=== PATIENT | male | born 1940 | race Asian ===

== ENCOUNTER 2016-10-20 18:47 | Inpatient (IN) | payer MEDICARE, OTHER ==
--- NOTE | ~2016-10-20 | DS ---
Unit #: [id number] #: [id number] Patient: YARELY WETZEL [id number] [address] [address] [id number] I MR#: [id number] NAME: YARELY WETZEL. ROOM: 333 Age: 75 Sex: M Admission Date: 10/20/2016 : 1940 Discharge Date: 10/23/2016 Attending Physician: Radha Cannon M.D. Referring Physician: Primary Care Physician No Primary Care Physician: Primary Care Physician No DISCHARGE SUMMARY DISCHARGE DIAGNOSES 1. Chronic protein malnutrition with anorexia, encouraged the patient to use Ensure. 2. Acute on chronic iron deficiency anemia, status post esophagogastroduodenoscopy and colonoscopy by Dr. Gonzales. 3. Benign prostatic hypertrophy, stable. 4. Chronic cough. 5. Colitis on CT of abdomen and pelvis without any evidence of ongoing infection at this time. 6. Osteoarthritis. CONSULTANTS Dr. Gonzales with Gastroenterology. PROCEDURES PERFORMED The patient had an EGD and colonoscopy per Dr. Gonzales on 10/22/2016 with findings of achalasia cardia, mild sigmoid and descending colon diverticulosis without any evidence of diverticulitis, polyps were visualized which were sessile and removed and cauterized, normal cecum and terminal ileum. DIAGNOSTIC STUDIES LABORATORY RESULTS: Currently, the patient labs of [facility] with glucose of 118, creatinine 0.6, sodium 137, potassium 3.9, chloride 110, CO2 of 20, uric acid when assessed was 4.2, calcium 8.3, magnesium 1.6, total protein of 6.1, albumin is 2.4. Total bilirubin 0.3, AST 31, ALT 36, alk phos 146. CBC with WBC of 6.5, RBC of 2.85, hemoglobin is 8.2, hematocrit is 24.5, MCV is 86.0, MCH is 28.9, MCHC is 33.6, RDW is 15.0, platelets 389, MPV was 6.9. HOSPITAL COURSE The patient is a 75-year-old male with past medical history of nonsustained SVT and BPH, who presented to the emergency department due to odynophagia and globus sensation as well as generalized weakness. On rectal exam, he was found to have heme-positive stool. He was admitted to [facility], where in the emergency department, CT of abdomen was done with findings of segmental thickening of the ascending colon raising the possibility of colitis, but no large or small bowel obstruction seen. There was some L1 compression fracture chronic in nature and a mildly enlarged prostate. The patient was admitted due to anorexia, odynophagia, and reported weight loss with Hemoccult positive stool. He was seen in consultation with Dr. Gonzales with Gastroenterology. We thought that was best to assess per the patient's current iron Unit #: [id number] #: [id number] Patient: YARELY WETZEL H deficiency anemia with EGD as well as colonoscopy. The patient was found to have achalasia cardia. He did get 25 units of Botox injection each of the 4 quadrants of the distal esophagus evidence of diverticulitis. The patient have remained afebrile during this hospitalization. WBC was not elevated. He had no abdominal pain when I assessed him during his entire hospitalization; therefore, I felt no need to utilize antibiotics per the CT with concern for the colitis. At this time, the patient tells me that he is eating, but very minimally. He does not like to eat fatty food. He does not like to eat red meat and actually he is afraid to eat red meat. I have talked to him about his chronic protein malnutrition and anorexia condition. I have encouraged the patient to use Ensure. He told me that he would try. The patient also complains of chronic cough that has been ongoing for years. He tells me that he has never smoked, but his children does. We will give him a trial of Symbicort to see if this will alleviate his symptoms. He will follow up with Dr. Gonzales in 10 to 12 weeks and as far as his BPH, he has seen Dr. White in the past. I have encouraged him to go back and see Dr. White if there is any additional dysuria symptoms that does not alleviate with the Flomax and finasteride. The patient tells me that he also have this chronic ongoing all over body pain which starts in the shoulder and goes into his arms and to his legs, to his back. I did check his uric acid level which was within normal limit. I believe the patient has osteoporosis that is causing his all over body pain. He would follow up with his primary care physician for this. DISCHARGE CONDITION Stable. DISCHARGE FOLLOWUP Follow up with primary care physician within 1 to 2 weeks. Follow up with Dr. Gonzales in 10 to 12 weeks. DISCHARGE MEDICATIONS Flomax 0.4 mg orally daily, Coreg 3.125 mg orally b.i.d., Symbicort 160 mcg 2 puffs inhaled b.i.d., finasteride 5 mg orally daily, iron sulfate 324 mg orally daily along with the stool softener one capsule orally daily as needed for constipation. Dictated by... Collin Tejada PA-C for Sorin Granado/hawa TD: 10/24/2016 07:52 JOB #: [id number] DISCHARGE SUMMARY X X DISCHARGE SUMMARY
--- NOTE | ~2016-10-20 | OR ---
Unit #: [id number] #: [id number] Patient: YARELY WETZEL [id number] [address] [place], [place] [address] [id number] I MR#: [id number] NAME: YARELY WETZEL. ROOM: [facility] Date of Procedure: 10/22/2016 Admission Date: 10/20/2016 Surgeon: Best Gonzales M.D. : 1940 Attending Physician: Radha Cannon M.D. OPERATIVE REPORT PREOPERATIVE DIAGNOSIS Iron-deficiency anemia. PROCEDURES PERFORMED Upper gastrointestinal endoscopy and Botox injection as well as colonoscopy with polypectomy. POSTOPERATIVE DIAGNOSES For upper endoscopy: 1. The patient had changes that were suggestive of achalasia cardia. 25 units of Botox was injected each of the 4 quadrants of the distal esophagus just above the gastroesophageal junction. Rest of the examination up to third part of duodenum was normal. For colonoscopy: 1. The patient had mild sigmoid and descending colon diverticulosis. These were few and far between. 2. Two sessile polyps, one each in the proximal and mid transverse colon. These were 1.4 cm and 8 mm each. Both were sessile and were removed using snare cautery polypectomy. They were retrieved and sent for histology. 3. Rest of examination up to cecum and terminal ileum was normal. The quality of prep was excellent. RECOMMENDATIONS 1. Regular diet. 2. Ferrous gluconate 250 mg IV q.24 hours for 3 consecutive days. 3. The patient will be followed up in the office in 10 to 12 weeks' time. SEDATION USED MAC. DESCRIPTION OF PROCEDURE Following detailed explanation of the potential risks and complications of an upper endoscopy and a colonoscopy, namely perforation, bleeding, and complications related to sedation, the patient was brought to GI lab and laid in the left lateral decubitus position. Lubricated tip of the Olympus video upper endoscope was passed through bite block into the proximal esophagus under direct vision. The entire esophageal mucosa was examined. The patient was noted to have liquid residue accumulated above the GE junction and distally, the GE junction was closed to tapered opening. There being no stricture or ring; however, the patient had changes suggestive of achalasia. The scope was then advanced into the gastric cavity and the latter was insufflated. Mucosa of the fundus, Unit #: [id number] #: [id number] Patient: YARELY WETZEL body, and antrum was examined and appeared unremarkable. Pylorus was intubated with visualization of the normal duodenal bulb and second and third part of the duodenum. Upon withdrawal and retroflexion, incisura, cardia, and greater curve examined and no additional findings noted. The scope was then withdrawn in the distal esophagus. Using sclerotherapy needle, each of the four quadrants of the esophagus was injected with 25 units of Botox each a 1 cm above the Z-line and distal esophagus. Excellent hemostasis was achieved. The entire esophageal mucosa was examined all the way up to pharynx. No additional findings noted. The examination table was then turned by 180 degrees and the patient positioned for a colonoscopy. A digital rectal examination was performed, which was normal. Lubricated tip of the Olympus video colonoscope was inserted through the anus and advanced under direct vision. The scope was advanced and passed up to sigmoid into descending colon. Scant small diverticula were noted in this area. The scope tip was then navigated all the way up to cecum with visualization of the ileocecal valve and the appendiceal orifice. Preparation was excellent with good visualization and photodocumentation was obtained. Last several inches of terminal ileum also visualized after intubation of the ileocecal valve and appeared normal. Successive segments of the colonic mucosa were examined upon withdrawal and appeared unremarkable except for presence of 2 sessile polyps, one each in the proximal and mid transverse colon. The proximal transverse colon polyp was about 1.4 cm in size and the mid transverse colon polyp was 8 mm in size. Both the polyps were sessile and were removed using snare cautery polypectomy. They were retrieved and sent for histology. Excellent hemostasis was achieved and Photodocumentation was obtained. No additional polyps noted. Other than the scant diverticula seen in the left side, the patient was also noted to have small internal hemorrhoids at anal verge. The scope was then withdrawn. The patient returned to recovery area. He tolerated the procedure without any postprocedure complications. Dictated bySorin Kidd TD: 10/23/2016 03:10 JOB #: [id number] OPERATIVE REPORT X Best Gonzales MD PROCEDURE OPERATIVE NOTE
--- NOTE | ~2016-10-20 | CT2 ---
[facility] A Service of [facility] RADIOLOGY TEXT RESULTS PATIENT: YARELY WETZEL LOCATION: [facility] 333-01 : 42 UNIT #: [id number] AGE: [address]: Radha Cannon MD SEX: M ORDER DR: [id number] [facility] [address] [place], [place] [address] [id number] I MR#: [id number] Acc #: [id number] NAME: YARELY WETZEL. : 1940 SEX: M STUDY DATE/TIME: 10/21/2016 2:04 UNIT: A U ROOM: [facility] STUDY DESCRIPTION: CT Abd and Pelv W Cont Attending Physician: Radha Cannon M.D. Referring Physician: Primary Care Physician No Ordering Physician: Beverly Terry M.D. Primary Care Physician: Primary Care Physician No MEDICAL IMAGING REPORT This report is preliminary unless electronic signature is present EXAM CT abdomen and pelvis with contrast 10/21/2016 HISTORY 75-year-old male with right-side abdominal pain, shortness of breath and weakness for 4 days prior to arrival (4 days prior to 10/20/2016). Right-side body weakness. COMPARISON PA and lateral chest radiograph 10/20/2016. CT abdomen and pelvis 06/26/2016, bilateral renal ultrasound 06/27/2016, whole-body bone scan 06/30/2016. TECHNIQUE This CT examination was performed with one or more of the following radiation dose reduction techniques: automatic exposure control, adjustment of mA and/or kV according to patient size, and iterative reconstruction. PROCEDURE 5 mm axial images from the lung bases through the lesser trochanters after IV and enteric contrast were administered. Sagittal and coronal reformatted images were obtained. FINDINGS ABDOMEN: Minimal dependent atelectasis is present in the lung bases without consolidation. There is mild generalized cardiac enlargement. The liver, gallbladder, spleen, adrenals are normal. Pancreas appears mildly atrophic. Left renal cysts are present, including a 3 cm cyst in the left mid kidney, unchanged. No free air, free fluid or abscess is identified. No pathologic adenopathy is seen. There is mild long-segment thickening of the ascending colon, which could represent changes of colitis. The appendix appears within normal limits. No abnormal small STS. [facility] A Service of [facility] RADIOLOGY TEXT RESULTS PATIENT: YARELY WETZEL LOCATION: [facility] 333-01 : 42 UNIT #: [id number] AGE: [address]: Radha Cannon MD SEX: M ORDER DR: bowel dilation is seen. Posterior fusion rods are seen from T11-L3, creating beam-hardening artifact which obscures many of the images. PELVIS: Prostate gland appears mildly enlarged and protrudes into the urinary bladder base. Rectum within normal limits. No pelvic adenopathy or free fluid is identified. Benign appearing cyst within the right iliac wing. No acute osseous abnormalities are identified. Chronic-appearing L1 compression deformity. IMPRESSION 1. Segmental thickening of the ascending colon raising the possibility of colitis in the appropriate clinical context. The appendix appears normal. 2. No evidence of high-grade large or small bowel obstruction. 3. Left renal cysts. 4. Thoracolumbar posterior spinal fusion changes with chronic L1 compression deformity. 5. Mild cardiomegaly. 6. Mild prostatic enlargement with nodular protrusion into the urinary bladder base. Dictated by... Tamie Vickers M.D. THIS IS AN ELECTRONICALLY VERIFIED REPORT Tamie Vickers M.D. at 10/22/2016 1:50 AM JEWELL/dwain TD: 10/21/2016 11:17 JOB #: [id number] MEDICAL IMAGING REPORT COPY
--- NOTE | ~2016-10-20 | CR63 ---
[facility] A Service of [facility] RADIOLOGY TEXT RESULTS PATIENT: YARELY WETZEL LOCATION: [facility] 333-01 : 42 UNIT #: [id number] AGE: [address]: Radha Cannon MD SEX: M ORDER DR: [id number] [facility] [address] [place], [place] [address] [id number] I MR#: [id number] Acc #: [id number] NAME: YARELY WETZEL. : 1940 SEX: M STUDY DATE/TIME: 10/20/2016 15:45 UNIT: CEDOF ROOM: [id number] STUDY DESCRIPTION: CR Chest 2 View Attending Physician: Beverly Terry M.D. Referring Physician: Primary Care Physician No Ordering Physician: Eliot Scott M.D. Primary Care Physician: Primary Care Physician No MEDICAL IMAGING REPORT This report is preliminary unless electronic signature is present EXAM PA and lateral chest, 2 views, 10/20/2016 COMPARISON 06/25/2016 HISTORY Short of air and right side pain for 4 days. FINDINGS There has been prior spinal fixation, but the lungs appear well expanded but clear. There is no consolidation or effusion or pneumothorax, or other acute appearing abnormality. There is no acute bony abnormality. Dictated by... Malcom Santiago M.D. THIS IS AN ELECTRONICALLY VERIFIED REPORT Malcom Santiago M.D. at 10/23/2016 3:48 PM TEV/psc TD: 10/21/2016 00:14 JOB #: [id number] MEDICAL IMAGING REPORT COPY
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
--- NOTE | ~2016-10-20 | EKG ---
PATIENT: YARELY WETZEL UNIT #: [id number] Ventricular Rate: 110 BPM Atrial Rate: 110 BPM P-R Interval: 148 ms QRS Duration: 124 ms Q-T Interval: 364 ms QTC Calculation(Bezet): 492 ms P [place]: 66 degrees Calculated R [place]: -57 degrees Calculated T [place]: 50 degrees Diagnosis Line: Sinus tachycardia Diagnosis Line: Left axis deviation Diagnosis Line: Right bundle branch block Diagnosis Line: Abnormal ECG Diagnosis Line: When compared with ECG of 12-SEP-2016 05:19, Diagnosis Line: QRS axis Shifted left Diagnosis Line: ST now depressed in Anterior leads Diagnosis Line: Confirmed by WILLAM ULLOA MD ([id number]) on Diagnosis Line: 10/21/2016 8:17:57 AM INTERPRETING MD: ARTEMIO CABAN
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
[2016-10-20 16:53] LABS: BASOPHIL# 0.1 X10e3 (0-0.3); BASOPHIL% 0.5 % (0-2.5); EOSINOPHIL% 0.2 % (0.0-7.0); HEMATOCRIT 29.8 % (38.0-50.0); LYMPHOCYTE# 0.9 X10e3 (1.0-3.5); LYMPHOCYTE% 8.4 % (17.0-45.0); MEAN CELL VOLUME 85.6 FL (83-96); MEAN CORPUSCULAR HEMOGLOBIN 28.6 PG (28-34); MEAN CORPUSCULAR HGB CONC 33.4 g/dL (30-36); MEAN PLATELET VOLUME 6.3 FL (6.5-11.5); MONOCYTE% 9.1 % (3.0-12.0); NEUTROPHIL# 8.8 X10e3 (1.5-7.1); NEUTROPHIL% 81.8 % (40-75); PLATELET COUNT 469 X10e3 (140-420); RED BLOOD COUNT 3.49 X10e (3.90-5.60); RED CELL DISTRIBUTION WIDTH 14.6 % (11.0-15.5); WHITE BLOOD COUNT 10.7 X10e3 (4.0-10.5)
[2016-10-20 16:54] LABS: DIFF IND NO
[2016-10-20 17:13] LABS: ALKALINE PHOSPHATASE 274 U/L (32-92); ALT (SGPT) 55 U/L (10-40); AST (SGOT) 55 U/L (10-42); BLOOD UREA NITROGEN 16 mg/dL (9-23); BUN/CREATININE RATIO 17.77; CARBON DIOXIDE 24 mmol/L (22-31); CHLORIDE 93 mmol/L (100-111); CREATININE SERUM 0.9 mg/dL (0.6-1.4); GLOM FILT RATE Estimated ABOVE60 mL/min (>60); GLUCOSE FASTING 130 mg/dL (70-110); POTASSIUM 3.8 mmol/L (3.5-5.1); PROTEIN TOTAL SERUM 8.1 g/dL (6.0-8.3); SODIUM 131 mmol/L (135-145)
[~2016-10-20 18:47] MED LIST: COREG3.125 MG PO; FINASTERIDE5 MG PO; FLOMAX0.4 M1 PO; NO MEDICATIONS; NORCO 10-325 TA1 TAB PO
[2016-10-20 19:43] LABS: POC - CKMB <1.0 ng/mL (0.0-7.9); POC - TROPONIN <0.05 ng/mL (<=0.05)
[2016-10-20 20:47] LABS: URINE SOURCE CLEAN CATCH
[2016-10-20 20:53] LABS: URINE APPEARANCE CLEAR; URINE BLOOD 3+ (NEG); URINE COLOR DK YELLOW; URINE GLUCOSE NEG (NEG); URINE KETONE 2+ (NEG); URINE LEUKOCYTE ESTERASE NEG (NEG); URINE NITRATE NEG (NEG); URINE PROTEIN 2+ (NEG); URINE SPECIFIC GRAVITY 1.021 (1.003-1.035)
[2016-10-20 20:56] LABS: URBCS1 AUWI 100-200 /[HPF] (0-2); URINE BACTERIA AUWI NEG (NEGATIVE); URINE SQUAMOUS EPITHELIAL CELL NONE SEEN /[HPF]; UWBCS1 AUWI 0-2 (0-5)
[2016-10-20 21:00] LABS: CULTURE INDICATED? NO; URINE BILIRUBIN NEG (NEG)
[2016-10-20 21:14] LABS: INFLUENZA A NEG (NEG); INFLUENZA B NEG (NEG)
[2016-10-21 05:31] LABS: BASOPHIL% 0.5 % (0-2.5); EOSINOPHIL# 0.1 X10e3 (0-0.7); EOSINOPHIL% 1.2 % (0.0-7.0); HEMOGLOBIN 9.1 gm/dL (13.0-16.0); LYMPHOCYTE# 1.3 X10e3 (1.0-3.5); LYMPHOCYTE% 14.8 % (17.0-45.0); MEAN CELL VOLUME 84.6 FL (83-96); MEAN CORPUSCULAR HEMOGLOBIN 28.6 PG (28-34); MEAN CORPUSCULAR HGB CONC 33.8 g/dL (30-36); MEAN PLATELET VOLUME 5.9 FL (6.5-11.5); MONOCYTE# 0.8 X10e3 (0-1.0); MONOCYTE% 9.4 % (3.0-12.0); NEUTROPHIL# 6.4 X10e3 (1.5-7.1); NEUTROPHIL% 74.1 % (40-75); PLATELET COUNT 438 X10e3 (140-420); RED BLOOD COUNT 3.19 X10e (3.90-5.60); RED CELL DISTRIBUTION WIDTH 14.6 % (11.0-15.5); WHITE BLOOD COUNT 8.6 X10e3 (4.0-10.5)
[2016-10-21 05:37] LABS: DIFF IND NO
[2016-10-21 06:12] LABS: ALBUMIN SERUM 2.5 g/dL (3.5-5.0); ALKALINE PHOSPHATASE 215 U/L (32-92); ALT (SGPT) 46 U/L (10-40); AST (SGOT) 41 U/L (10-42); BLOOD UREA NITROGEN 12 mg/dL (9-23); CALCIUM SERUM 8.4 mg/dL (8.4-10.2); CARBON DIOXIDE 21 mmol/L (22-31); CHLORIDE 97 mmol/L (100-111); CREATININE SERUM 0.6 mg/dL (0.6-1.4); GLOM FILT RATE Estimated ABOVE60 mL/min (>60); GLUCOSE FASTING 132 mg/dL (70-110); POTASSIUM 3.5 mmol/L (3.5-5.1); PROTEIN TOTAL SERUM 6.8 g/dL (6.0-8.3); SODIUM 131 mmol/L (135-145)
[2016-10-22 08:57] LABS: HEMATOCRIT 26.1 % (38.0-50.0); HEMOGLOBIN 8.8 gm/dL (13.0-16.0); MEAN CELL VOLUME 85.4 FL (83-96); MEAN CORPUSCULAR HEMOGLOBIN 28.7 PG (28-34); MEAN CORPUSCULAR HGB CONC 33.6 g/dL (30-36); MEAN PLATELET VOLUME 5.9 FL (6.5-11.5); RED BLOOD COUNT 3.06 X10e (3.90-5.60); RED CELL DISTRIBUTION WIDTH 14.7 % (11.0-15.5); WHITE BLOOD COUNT 7.3 X10e3 (4.0-10.5)
[2016-10-22 09:26] LABS: ALBUMIN SERUM 2.7 g/dL (3.5-5.0); ALKALINE PHOSPHATASE 179 U/L (32-92); ALT (SGPT) 42 U/L (10-40); AST (SGOT) 38 U/L (10-42); BILIRUBIN,TOTAL 0.4 mg/dL (0.2-2.0); BLOOD UREA NITROGEN 6 mg/dL (9-23); BUN/CREATININE RATIO 8.57; CALCIUM SERUM 8.3 mg/dL (8.4-10.2); CARBON DIOXIDE 22 mmol/L (22-31); CHLORIDE 107 mmol/L (100-111); CREATININE SERUM 0.7 mg/dL (0.6-1.4); GLOM FILT RATE Estimated ABOVE60 mL/min (>60); GLUCOSE FASTING 146 mg/dL (70-110); MAGNESIUM 1.7 mg/dL (1.6-3.0); POTASSIUM 3.6 mmol/L (3.5-5.1); PROTEIN TOTAL SERUM 7.1 g/dL (6.0-8.3); SODIUM 136 mmol/L (135-145)
[2016-10-23 06:09] LABS: HEMATOCRIT 24.5 % (38.0-50.0); HEMOGLOBIN 8.2 gm/dL (13.0-16.0); MEAN CORPUSCULAR HEMOGLOBIN 28.9 PG (28-34); MEAN CORPUSCULAR HGB CONC 33.6 g/dL (30-36); MEAN PLATELET VOLUME 6.2 FL (6.5-11.5); RED BLOOD COUNT 2.85 X10e (3.90-5.60); WHITE BLOOD COUNT 6.5 X10e3 (4.0-10.5)
[2016-10-23 06:52] LABS: ALBUMIN SERUM 2.4 g/dL (3.5-5.0); ALKALINE PHOSPHATASE 146 U/L (32-92); ALT (SGPT) 36 U/L (10-40); AST (SGOT) 31 U/L (10-42); BILIRUBIN,TOTAL 0.3 mg/dL (0.2-2.0); CALCIUM SERUM 8.3 mg/dL (8.4-10.2); CARBON DIOXIDE 20 mmol/L (22-31); CHLORIDE 110 mmol/L (100-111); CREATININE SERUM 0.6 mg/dL (0.6-1.4); GLOM FILT RATE Estimated ABOVE60 mL/min (>60); GLUCOSE FASTING 118 mg/dL (70-110); MAGNESIUM 1.6 mg/dL (1.6-3.0); POTASSIUM 3.9 mmol/L (3.5-5.1); PROTEIN TOTAL SERUM 6.1 g/dL (6.0-8.3); SODIUM 137 mmol/L (135-145)
[2016-10-23 07:00] LABS: BLOOD UREA NITROGEN <5 mg/dL (9-23); BUN/CREATININE RATIO 8.33
[2016-10-23] MEDS ORDERED: SYMBICORT INH (12:09)
[2016-10-23] MEDS ORDERED: FERROUS SU324 ( 65 ) PO (12:09)
[2016-10-23] MEDS ORDERED: STOOL SOFTNER PO (12:10)
[2017-03-24] MEDS ORDERED: OXYCODONE HCL10 MG PO (12:34)
== END 2016-10-23 12:34 | disposition home or self-care (01) | DRG 812 ==
LOC: CED 18:47 → CEDOF 22:45 → C3A PCU 10-21 09:15
PROVIDERS: Emergency Medicine; Family Medicine; Internal Medicine; Internal Medicine Gastroenterology
PROC: 0DBL8ZZ Excision of Transverse Colon, Via Natural or Artificial Opening Endoscopic (ICD-10-PCS; principal; 2016-10-22 12:11)
PROC: 3E0G8GC Introduction of Other Therapeutic Substance into Upper GI, Via Natural or Artificial Opening Endoscopic (ICD-10-PCS; 2016-10-22 12:11)
PROC: 0DJ08ZZ Inspection of Upper Intestinal Tract, Via Natural or Artificial Opening Endoscopic (ICD-10-PCS; 2016-10-22 12:11)
DX: D50.0 Iron deficiency anemia secondary to blood loss (chronic) (principal); E46 Unspecified protein-calorie malnutrition; K22.0 Achalasia of cardia; I47.1 Supraventricular tachycardia; R10.819 Abdominal tenderness, unspecified site; N40.0 Benign prostatic hyperplasia without lower urinary tract symptoms; M19.90 Unspecified osteoarthritis, unspecified site; Z87.442 Personal history of urinary calculi; R63.0 Anorexia; R53.83 Other fatigue; K57.30 Diverticulosis of large intestine without perforation or abscess without bleeding; D12.3 Benign neoplasm of transverse colon; K52.9 Noninfective gastroenteritis and colitis, unspecified; R05 Cough; M81.0 Age-related osteoporosis without current pathological fracture
CPT/HCPCS: 71020; 74177; 80053; 81003; 82553; 83735; 84484; 84550; 85025; 85027; 87086; 87804; 88305; 93005; 94640; 94760; 99285; C9113; J0585; J0696; J2916; Q9967

== ENCOUNTER → 2017-02-16 | Outpatient (CLI) | payer MEDICARE, OTHER ==
[~2017-02-16] MED LIST changes: +FERROUS SU324 ( 65 ) PO; +HYDROCODON-ACE1 EAC9 PO; +OXYCODONE HCL10 MG PO; +SENNA-TIME S T1 EACH PO; +STOOL SOFTNER PO; +SYMBICORT INH
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
== END | disposition home or self-care (01) ==
LOC: CMRI 02-09 10:00
DX: G89.21 Chronic pain due to trauma (principal); M51.26 Other intervertebral disc displacement, lumbar region; M25.78 Osteophyte, vertebrae; M99.83 Other biomechanical lesions of lumbar region
CPT/HCPCS: 72141

== ENCOUNTER → 2017-02-27 | Outpatient (CLI) | payer MEDICARE, OTHER ==
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
== END | disposition home or self-care (01) ==
LOC: CMRI 17:08
DX: M25.511 Pain in right shoulder (principal); S46.011A Strain of muscle(s) and tendon(s) of the rotator cuff of right shoulder, initial encounter; M19.011 Primary osteoarthritis, right shoulder; M65.811 Other synovitis and tenosynovitis, right shoulder; M77.9 Enthesopathy, unspecified; S43.421A Sprain of right rotator cuff capsule, initial encounter
CPT/HCPCS: 73221

== ENCOUNTER → 2017-03-24 | Outpatient (CLI) | payer MEDICARE, OTHER ==
--- NOTE | ~2017-03-24 | CR63 ---
[facility] A Service of [facility] RADIOLOGY TEXT RESULTS PATIENT: YARELY WETZEL LOCATION: [facility] : 42 UNIT #: [id number] AGE: [address]: Jovan Peñaloza MD SEX: M ORDER DR: [id number] [facility] [address]. [place], [place] [address] [id number] O MR#: [id number] Acc #: [id number] NAME: YARELY WETZEL : 1940 SEX: M STUDY DATE/TIME: 03/24/2017 13:09 UNIT: [facility] ROOM: STUDY DESCRIPTION: CR Chest 2 View Attending Physician: Jovan Peñaloza M.D. Referring Physician: Jovan Peñaloza M.D. Ordering Physician: Jovan Peñaloza M.D. Primary Care Physician: Ai Mcclain A.P.R.N. MEDICAL IMAGING REPORT This report is preliminary unless electronic signature is present EXAM PA and lateral chest DATE 03/24/2017 HISTORY 76-year-old male undergoing preoperative evaluation for right shoulder arthroplasty procedure. Shortness of breath with activity today. Additional history of anemia. COMPARISON PA and lateral chest radiograph 10/20/2016. FINDINGS No acute airspace disease. The descending thoracic aorta is tortuous, but this is unchanged from prior. Heart size is normal. Posterior lumbosacral spinal fusion rods in place. IMPRESSION 1. No acute chest findings. No significant change compared to 10/20/2016. Dictated by... Tamie Vickers M.D. THIS IS AN ELECTRONICALLY VERIFIED REPORT Tamie Vickers M.D. at 03/25/2017 8:43 AM [facility]/dominik TD: 03/24/2017 20:45 JOB #: [id number] [facility] A Service of [facility] RADIOLOGY TEXT RESULTS PATIENT: YARELY WETZEL LOCATION: [facility] : 42 UNIT #: [id number] AGE: [address]: Jovan Peñaloza MD SEX: M ORDER DR: MEDICAL IMAGING REPORT Page 1 of 1 COPY
--- NOTE | ~2017-03-24 | CR230 ---
[facility] A Service of [facility] RADIOLOGY TEXT RESULTS PATIENT: YARELY WETZEL LOCATION: [facility] : 42 UNIT #: [id number] AGE: [address]: Jovan Peñaloza MD SEX: M ORDER DR: [id number] [facility] [address]. [place], [place] [address] [id number] O MR#: [id number] Acc #: [id number] NAME: YARELY WETZEL : 1940 SEX: M STUDY DATE/TIME: 03/24/2017 13:12 UNIT: [facility] ROOM: STUDY DESCRIPTION: CR Shoulder Min 2 View Rt Attending Physician: Jovan Peñaloza M.D. Referring Physician: Jovan Peñaloza M.D. Ordering Physician: Jovan Peñaloza M.D. Primary Care Physician: Ai Mcclain A.P.R.N. MEDICAL IMAGING REPORT This report is preliminary unless electronic signature is present EXAM Right shoulder 03/24/2017 INDICATIONS 76-year-old male presenting for preop evaluation right shoulder surgery. Short of air with activity, right shoulder pain, limited range of motion, symptoms began today. Anemia. TECHNIQUE Two views of the right shoulder, no comparisons. FINDINGS There is a high-riding right shoulder with associated degenerative change of the AC joint and glenohumeral joint. This may reflect a constellation of findings related to rotator cuff tear. No acute fracture. The bones are osteoporotic. IMPRESSION 1. Osteoporosis with degenerative change and imaging findings suspicious for underlying rotator cuff tear. Dictated by... Francisco Walker M.D. THIS IS AN ELECTRONICALLY VERIFIED REPORT Francisco Walker M.D. at 03/26/2017 7:28 AM JANELL/dominik TD: 03/24/2017 21:26 JOB #: [id number] MEDICAL IMAGING REPORT [facility] A Service [facility] RADIOLOGY TEXT RESULTS PATIENT: YAR[facility]ZEL [id number] UNIT #: [id number] AGE: [address]: Jovan Peñaloza MD SEX: M ORDER DR: Page 1 of 1 COPY
[2017-03-24 12:02] LABS: HEMATOCRIT 29.7 % (38.0-50.0); HEMOGLOBIN 9.9 gm/dL (13.0-16.0); MEAN CELL VOLUME 84.8 FL (83-96); MEAN CORPUSCULAR HEMOGLOBIN 28.3 PG (28-34); MEAN CORPUSCULAR HGB CONC 33.3 g/dL (30-36); MEAN PLATELET VOLUME 6.4 FL (6.5-11.5); RED BLOOD COUNT 3.5 X10e (3.90-5.60); RED CELL DISTRIBUTION WIDTH 16.4 % (11.0-15.5); URINE APPEARANCE CLEAR; URINE BILIRUBIN NEG (NEG); URINE BLOOD 2+ (NEG); URINE COLOR YELLOW; URINE GLUCOSE NEG (NEG); URINE KETONE NEG (NEG); URINE LEUKOCYTE ESTERASE NEG (NEG); URINE NITRATE NEG (NEG); URINE PROTEIN NEG (NEG); URINE UROBILINOGEN 0.2 MG/DL (NEG); WHITE BLOOD COUNT 4.4 X10e3 (4.0-10.5)
[2017-03-24 12:06] LABS: URBCS1 AUWI 50-100 /[HPF] (0-2); URINE BACTERIA AUWI NEG (NEGATIVE); URINE SQUAMOUS EPITHELIAL CELL NONE SEEN /[HPF]; UWBCS1 AUWI 0-2 (0-5)
[2017-03-24 12:14] LABS: PROTHROMBIN TIME (PATIENT) 10.9 SECONDS (10.0-11.7)
[2017-03-24 12:18] LABS: CULTURE INDICATED? NO; URINE SOURCE CLEAN CATCH
[2017-03-24 12:27] LABS: CALCIUM SERUM 8.9 mg/dL (8.4-10.2); GLOM FILT RATE Estimated 73.8 mL/min (>60); POTASSIUM 5.3 mmol/L (3.5-5.1)
== END | disposition home or self-care (01) ==
LOC: CAMB 11:17
PROVIDERS: Orthopaedic Surgery
DX: Z01.818 Encounter for other preprocedural examination (principal); M19.011 Primary osteoarthritis, right shoulder; M81.0 Age-related osteoporosis without current pathological fracture
CPT/HCPCS: 36415; 71020; 73030; 80048; 81003; 85027; 85610; 86850; 86900; 86901; 87070

== ENCOUNTER 2017-03-26 08:02 | Inpatient (IN) | payer MEDICARE, OTHER ==
[~2017-03-26] VITALS: Ht 157.5 cm; Wt 50.6 kg
--- NOTE | ~2017-03-26 | CR230 ---
[facility] A Service of [facility] & [facility] RADIOLOGY TEXT RESULTS PATIENT: YARELY WETZEL LOCATION: [facility] 451-01 : 42 UNIT #: [id number] AGE: [address]: Jovan Peñaloza MD SEX: M ORDER DR: [id number] [facility] [address]. [place], [place] [address] [id number] I MR#: [id number] Acc #: [id number] NAME: YARELY WETZEL : 1940 SEX: M STUDY DATE/TIME: 03/26/2017 13:07 UNIT: C4 ROOM: [facility] STUDY DESCRIPTION: CR Shoulder Min 2 View Rt Attending Physician: Jovan Peñaloza M.D. Ordering Physician: Jovan Peñaloza M.D. Primary Care Physician: Ai Mcclain A.P.R.N. MEDICAL IMAGING REPORT This report is preliminary unless electronic signature is present EXAM Right shoulder series, 03/26/2017. HISTORY Postop total PACU front, pain in right shoulder. Postop right shoulder replacement today. TECHNIQUE AP and transscapular views of the right shoulder are presented. COMPARISON 03/24/2017. FINDINGS The patient is status post right shoulder arthroplasty. The orthopedic hardware appears normally located and aligned. There is an incompletely visualized calcific density measuring approximately 1.9 cm x 2 cm projecting over the inferior aspect of the glenohumeral joint. It was not present on the preoperative study. Its exact etiology is unclear. The appearance and location raises concern for possible bone fragment or fracture fragment within the operative bed. Please correlate with operative history. This could be further evaluated if possible for the patient with repeat internal and external rotation views of the shoulder. There is subcutaneous air in the operative bed. No acute appearing nonoperative periarticular soft tissue abnormality. The acromioclavicular joint shows stable degenerative change. The visualized ribs are intact, and the visualized pulmonary parenchyma is clear. Dictated by... Mynor Perez M.D. THIS IS AN ELECTRONICALLY VERIFIED REPORT [facility] A Service of [facility] & [facility] RADIOLOGY TEXT RESULTS PATIENT: YARELY WETZEL LOCATION: [facility] 451-01 : 42 UNIT #: [id number] AGE: [address]: Jovan Peñaloza MD SEX: M ORDER DR: Mynor Perez M.D. at 03/28/2017 10:02 PM David TD: 03/26/2017 21:01 JOB #: [id number] MEDICAL IMAGING REPORT Page 1 of 1 COPY
--- NOTE | ~2017-03-26 | OR ---
Unit #: [id number] #: [id number] Patient: YARELY WETZEL [id number] [address] [address] [id number] I MR#: [id number] NAME: YARELY WETZEL ROOM: [facility] Date of Procedure: 03/26/2017 Admission Date: 03/26/2017 Surgeon: Jovan Peñaloza M.D. : 1940 Attending Physician: Jovan Peñaloza M.D. Primary Care Physician: Ai Mcclain A.P.R.N. OPERATIVE REPORT PREOPERATIVE DIAGNOSIS Right shoulder rotator cuff arthropathy. POSTOPERATIVE DIAGNOSIS Right shoulder rotator cuff arthropathy. PROCEDURE PERFORMED 1. Right reverse total shoulder arthroplasty. 2. Right shoulder biceps tenodesis. 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 ANESTHESIA General endotracheal. COMPLICATIONS None. SPECIMENS None. DRAINS None. SURGICAL IMPLANTS 1. Leandro reverse total shoulder arthroplasty system size 10 trabecular metal humeral stem. 2. Standard base plate with 2 screws and a 36 mm glenosphere. 3. +0 mm retentive polyethylene liner. INDICATION FOR PROCEDURE Mr. Wetzel is a 76-year-old male with persistent severe right shoulder pain that has failed to respond to conservative treatment. He has severe rotator cuff arthropathy. The patient wished to proceed with elective surgery due to failure with conservative treatment. It was felt that reverse total shoulder arthroplasty would provide the best results. He wished to proceed. Risks and benefits were discussed. Risks include, but not limited to, infection, bleeding, nerve injury, blood clots, risks associated with anesthesia, need for further surgery, persistent pain, and possibly . Unit #: [id number] #: [id number] Patient: YARELY WETZEL DESCRIPTION OF PROCEDURE On 03/26/2017, the patient was seen in preoperative holding area, where his surgical site was marked. Preoperative antibiotics were received. H and P and consent updated. Preoperative block performed. The patient was taken to the operating room and provided general anesthesia. He was carefully moved to beach chair position. Right upper extremity was prepped and draped in typical sterile fashion. Time-out performed confirming the correct surgical site and procedure. At this point, a deltopectoral approach was performed. Incision was taken down through the skin and subcutaneous tissues. Deltopectoral interval identified. Cephalic vein taken laterally. Clavipectoral fascia incised. Deltoid retractor placed. Biceps tendon identified. It was resected and tenodesed to the pectoralis muscle distal. Excess tendon removed. This was tenodesed with 0 Vicryl suture. Next, the subscapularis was released off the lesser tuberosity. Two #2 FiberWire sutures were placed in the subscapularis and capsule. The head was then dislocated. Significant arthritis noted with full-thickness cartilage loss. Starting canal finder was placed in the center portion of the humeral head superiorly and entered into the canal distally. Sequential reaming was taken up to 10 mm. A guide was placed with careful attention to retroversion. This was approximately 20 degrees retroversion. It was secured in place. The humeral head cut was made. Due to the significant proximal migration, next a couple of millimeters was taken off the humeral head. The opening reamer followed by conical reamer used. Stem placed. Shoulder was reduced and retractors were placed around the glenoid. Labrum removed and biceps stump removed. Cartilage scraped. Central pin placed into the glenoid. Careful attention to eversion and tilt noted. 10 degree tilt placed angling the tip of the pin towards the superior aspect. It was dilated, followed by reaming producing trabecular bone predominantly on the lower half of the glenoid. Excess bone around the periphery was removed. The wound was thoroughly irrigated. The trabecular metal post was placed and malleted into position. The base plate was secured. Two bicortical screws were placed proximally and distally. Locking caps were placed. It was secured. Glenosphere was placed. It was malleted down and checked to be stable. Next, the stem and poly were reduced and noted to have appropriate motion and stability. The size 10 final humeral stem was placed with careful attention to version. It was secured. A 0 mm polyethylene retentive liner was placed. It was noted to be stable. The final liner was placed. Suture from the subscapularis was passed through the anterior aspect of the stem and humerus. It was tied down. Full range of motion of the shoulder noted with no impingement. Stability noted. The shoulder was thoroughly irrigated with normal saline containing bacitracin. This was approximately 3 L. The interval was closed with 0 Vicryl suture followed by 2-0 Vicryl for subcutaneous tissues and a 4-0 running subcuticular Monocryl stitch for skin. Dermabond, Telfa, Tegaderm, sling immobilizer were placed. The patient was subsequently awakened from general anesthesia in stable condition and taken to the PACU postoperatively. POSTOPERATIVE PLAN The patient will be admitted. He will have pain control. He will be on Lovenox for DVT prophylaxis. No complications were encountered during the surgical procedure. Dictated by... Jovan Peñaloza M.D. Unit #: [id number] #: [id number] Patient: YARELY WETZEL BRYANT/hawa TD: 03/27/2017 07:43 JOB #: [id number] OPERATIVE REPORT Page 1 of 1 X X PROCEDURE OPERATIVE NOTE
--- NOTE | ~2017-03-26 | DS ---
Unit #: [id number] #: [id number] Patient: YARELY WETZEL [id number] [address] [address] [id number] I MR#: [id number] NAME: YARELY WETZEL ROOM: [facility] Age: 76 Sex: M Admission Date: 03/26/2017 : 1940 Discharge Date: 03/27/2017 Attending Physician: Jovan Peñaloza M.D. Primary Care Physician: Murali DuranPJoannaRFelecia DISCHARGE SUMMARY DISCHARGE DIAGNOSIS Right shoulder rotator cuff arthropathy, status post reversal of shoulder arthroplasty. DISCHARGE MEDICATIONS The patient will restart all of his home medications in addition to: 1. [place] 7.5/325 mg, one to two tablets p.o. q.4 hours p.r.n. pain, #70. 2. He was also discharged with Seneufemiaot S. DETAILS OF HOSPITAL STAY The patient was admitted after scheduled elective right reversal shoulder arthroplasty. Patient tolerated surgery well. Postoperatively, he did have some difficulty with voiding. Catheter was placed. On postoperative day one, labs are stable, vital signs are stable, pain is controlled. It is felt he would benefit from discharge to home. His catheter is to be pulled. If he is able to void, he will be able to be discharged home. DISPOSITION Home. DISCHARGE INSTRUCTIONS 1. The patient will keep the dressing clean and dry. He can shower and get it wet. 2. He will have home physical therapy for overall range of motion and pendulums out of the sling. 3. He is non-weight bearing on the right upper extremity. 4. He will follow up in the office in 10-14 days. Dictated by... Jovan Peñaloza M.D. BRYANT/cedrick TD: 03/27/2017 09:13 JOB #: [id number] Unit #: [id number] #: [id number] Patient: YARELY WETZEL DISCHARGE SUMMARY Page 1 of 1 X X DISCHARGE SUMMARY
[~2017-03-26 08:02] MED LIST changes: -HYDROCODON-ACE1 EAC9 PO; -SENNA-TIME S T1 EACH PO
[2017-03-26 08:43] LABS: BASOPHIL% 0.9 % (0-2.5); EOSINOPHIL# 0.2 X10e3 (0-0.7); EOSINOPHIL% 3.9 % (0.0-7.0); HEMATOCRIT 30.9 % (38.0-50.0); HEMOGLOBIN 10.2 gm/dL (13.0-16.0); LYMPHOCYTE# 1.6 X10e3 (1.0-3.5); LYMPHOCYTE% 32.9 % (17.0-45.0); MEAN CELL VOLUME 84.8 FL (83-96); MEAN CORPUSCULAR HEMOGLOBIN 28.1 PG (28-34); MEAN CORPUSCULAR HGB CONC 33.1 g/dL (30-36); MEAN PLATELET VOLUME 6.6 FL (6.5-11.5); MONOCYTE# 0.4 X10e3 (0-1.0); MONOCYTE% 9.1 % (3.0-12.0); NEUTROPHIL# 2.6 X10e3 (1.5-7.1); NEUTROPHIL% 53.2 % (40-75); PLATELET COUNT 330 X10e3 (140-420); RED BLOOD COUNT 3.65 X10e (3.90-5.60); RED CELL DISTRIBUTION WIDTH 16.5 % (11.0-15.5); WHITE BLOOD COUNT 4.9 X10e3 (4.0-10.5)
[2017-03-26 08:44] LABS: DIFF IND NO
[2017-03-27 03:59] LABS: HEMATOCRIT 25.5 % (38.0-50.0); HEMOGLOBIN 8.7 gm/dL (13.0-16.0); MEAN CELL VOLUME 83.9 FL (83-96); MEAN CORPUSCULAR HEMOGLOBIN 28.8 PG (28-34); MEAN CORPUSCULAR HGB CONC 34.3 g/dL (30-36); MEAN PLATELET VOLUME 6.3 FL (6.5-11.5); RED BLOOD COUNT 3.04 X10e (3.90-5.60); RED CELL DISTRIBUTION WIDTH 16.5 % (11.0-15.5); WHITE BLOOD COUNT 6.8 X10e3 (4.0-10.5)
[2017-03-27 04:34] LABS: BUN/CREATININE RATIO 17.14; CALCIUM SERUM 8.2 mg/dL (8.4-10.2); CREATININE SERUM 0.7 mg/dL (0.6-1.4); POTASSIUM 4.1 mmol/L (3.5-5.1)
[2017-03-27] MEDS ORDERED: HYDROCODON-ACE1 EAC9 PO (11:28)
[2017-03-27] MEDS ORDERED: SENNA-TIME S T1 EACH PO (11:28)
== END 2017-03-27 12:04 | disposition home health service (06) | DRG 483 ==
LOC: CSUR 08:02 → CPACUOF 10:00 → CSUR 10:25 → C4B 10:25 → CPACUOF 10:25 → CSUR 10:30 → CPACUOF 14:02 → C4B 14:02
PROVIDERS: Orthopaedic Surgery
PROC: 0LS30ZZ Reposition Right Upper Arm Tendon, Open Approach (ICD-10-PCS; 2017-03-26)
PROC: 0RRJ00Z Replacement of Right Shoulder Joint with Reverse Ball and Socket Synthetic Substitute, Open Approach (ICD-10-PCS; principal; 2017-03-26 10:30)
DX: M19.011 Primary osteoarthritis, right shoulder (principal); H91.90 Unspecified hearing loss, unspecified ear; N40.1 Benign prostatic hyperplasia with lower urinary tract symptoms; R33.8 Other retention of urine
CPT/HCPCS: 73030; 80048; 84132; 85025; 85027; 94010; 97161; 97530; C1713; C1776; G8978-GP; G8979-GP; J0330; J0690; J1650; J2250; J2270; J2405; J2795; J3010